=== PATIENT | male | born 1960 | race Caucasian/White ===

== ENCOUNTER 2022-12-24 21:40 | Observation (INO) | payer OTHER, MEDICAID ==
[~2022-12-24] VITALS: Ht 170.2 cm; Wt 72.6 kg
[2022-12-24 21:45] VITALS: BP_SYST 160; PULSE 86; RESP 18; TEMP 98.1; O2SAT 98
[2022-12-24] MEDS ORDERED: iohexoL 350 mgI/mL, 100 ML INFUS..BTL IV ONE (22:14)
[2022-12-24 22:15] LABS: BASOPHILS # (AUTO) 0.1 K/uL (0.0-0.2); EOSINOPHILS # (AUTO) 0.2 K/uL (0.0-0.4); EOSINOPHILS % (AUTO) 3.1 % (0.0-4.0); HEMATOCRIT 36.3 % (36-54); HEMOGLOBIN 11.8 g/dL (14.0-18.0); LYMPHOCYTES # (AUTO) 1.7 K/uL (1.0-5.5); LYMPHOCYTES % (AUTO) 25.7 % (20.5-51.5); MEAN CORPUSCULAR HEMOGLOBIN 26 pg (27-31); MEAN CORPUSCULAR HGB CONC 33 % (32-36); MEAN CORPUSCULAR VOLUME 79 fL (79.0-98.0); MONOCYTES # (AUTO) 0.7 K/uL (0.0-1.0); NEUTROPHILS # (AUTO) 3.8 K/uL (1.8-7.7); NEUTROPHILS % (AUTO) 59.2 % (40.0-70.0); PLATELET COUNT (AUTO) 228 K/uL (130-430); RED BLOOD CELL COUNT(AUTO) 4.57 MIL/uL (4.2-6.2); RED CELL DISTRIBUTION WIDTH 15.3 % (9.0-15.0); WHITE BLOOD COUNT (AUTO) 6.4 K/uL (4.8-10.8)
[2022-12-24 22:43] LABS: CALCIUM 8.2 mg/dL (8.4-11.0); CREATININE 1.45 mg/dL (0.55-1.30); INR 0.9 (0.80-1.20); PROTHROMBIN TIME 9.6 SECS (9.5-12.5)
[2022-12-24 22:50] LABS: TOTAL BILIRUBIN 0.2 mg/dL (0.0-1.0); TOTAL PROTEIN, SERUM 7.2 g/dL (6.4-8.3)
[2022-12-24 23:08] LABS: BILIRUBIN,URINE NEGATIVE (NEGATIVE); CLARITY/URINE Clear (CLEAR); COLOR,URINE YELLOW (YELLOW); GLUCOSE,URINE 2+ (NEGATIVE); NITRITE, URINE NEGATIVE (NEGATIVE); PROTEIN URINE 3+ (NEGATIVE); UROBILINOGEN,URINE 0.2 (0.2-1.0)
[2022-12-24] MEDS ORDERED: ASPIRIN 81 MG TAB.CHEW PO ONE (23:15)
[2022-12-24] MEDS ORDERED: CLOPIDOGREL BISULFATE 75 MG TABLET PO ONE (23:15)
[2022-12-24 23:16] LABS: BLOOD, URINE TRACE (NEGATIVE); KETONES,URINE NEGATIVE (NEGATIVE); LEUKOCYTE ESTERASE ,URINE NEGATIVE (NEGATIVE)
[2022-12-24 23:27] LABS: BARBITURATE, URINE NEGATIVE (NEG <=200); BENZODIAZEPINE, URINE NEGATIVE (NEG <=150); CANNABINOID, URINE NEGATIVE (NEG <=50); COCAINE, URINE NEGATIVE (NEG <=150); METHAMPHETAMINES SCREEN,URINE NEGATIVE (NEG <=500); OPIATE, URINE NEGATIVE (NEG <=100); PHENCYCLIDINE SCREEN,URINE NEGATIVE (NEG <=25); URINE AMPHETAMINE NEGATIVE (NEG <=500); URINE METHADONE NEGATIVE (NEG <=200); URINE OXYCODONE SCREEN NEGATIVE (NEG <=100); URINE PROPOXYPHENE SCREEN NEGATIVE (NEG <=300)
[2022-12-24 23:28] LABS: UR TRICYCLIC ANTIDEPRESSANTS NEGATIVE (NEG <=300)
[2022-12-24 23:51] LABS: BACTERIA,URINE RARE /HPF (None Seen)
[2022-12-25] MEDS ORDERED: NACL 0.9% 1,000 ML IV ONE
[2022-12-25] MEDS ORDERED: NOR10 PO (00:34)
[2022-12-25] MEDS ORDERED: SITA100T11 PO (00:34)
[2022-12-25] MEDS ORDERED: TAMS-11 PO (00:34)
[2022-12-25] MEDS ORDERED: VITD2000 PO (00:34)
[2022-12-25] MEDS ORDERED: SYN50 PO (00:34)
[2022-12-25] MEDS ORDERED: LIP20 PO (00:34)
[2022-12-25] MEDS ORDERED: METF-380 PO (00:34)
[2022-12-25] MEDS ORDERED: GLIP10TA11 PO (00:34)
[2022-12-25] MEDS ORDERED: INSU100I70 (00:34)
[2022-12-25] MEDS ORDERED: OMEP20CA15 PO (00:34)
[2022-12-25 01:38] VITALS: BP_SYST 181; PULSE 97; RESP 18; TEMP 97.7
[2022-12-25 08:00] VITALS: BP_SYST 158; PULSE 76; RESP 16; TEMP 98.3; O2SAT 98; O2SAT 99
[2022-12-25 12:00] VITALS: BP_SYST 148; PULSE 78; RESP 16; TEMP 98.6; O2SAT 98
[2022-12-25] MEDS ORDERED: amLODIPine BESYLATE 10 MG TABLET PO ONE (12:30)
[2022-12-25] MEDS ORDERED: ASPI-1393 PO (12:59)
[2022-12-25] MEDS ORDERED: CLOP75TA32 PO (13:01)
[2022-12-25 15:55] VITALS: BP_SYST 158; PULSE 76; RESP 16; TEMP 98.3; O2SAT 99
[2022-12-26] MEDS ORDERED: amLODIPine BESYLATE 10 MG TABLET PO SCH (09:00)
== END 2022-12-25 16:45 | disposition home or self-care (01) ==
LOC: SED 21:40 → STU 12-25 00:15
PROVIDERS: ADMIT Specialist; ATTEND Specialist
DX: I63.9 Cerebral infarction, unspecified (principal); I10 Essential (primary) hypertension; E11.65 Type 2 diabetes mellitus with hyperglycemia; E03.9 Hypothyroidism, unspecified; N28.9 Disorder of kidney and ureter, unspecified; Z79.899 Other long term (current) drug therapy
CPT/HCPCS: 99291; 80061; 80307; 80053; 82962; 83037; 85025; 85610; 85730; 86886; 86900; 86901; 84484; 36415; 93005; 71045; 70496; 70498; 81000; 70450; 81003; 96360; 70551; 76376; Q9967; G0378